=== PATIENT | female | born 1970 | race Hispanic/Latino ===

== ENCOUNTER 2016-09-13 11:00 | Emergency (ER) | payer SELFPAY ==
[~2016-09-13 11:00] MED LIST: NOMED
[2016-09-13 11:05] VITALS: BP 112/71; PULSE 70; RESP 16; O2SAT 98
[2016-09-13] MEDS ORDERED: Lidocaine 1%-Epi 1:100,000 20 mL Inj ONE (11:23)
--- NOTE | 2016-09-13 12:33 | ED.REPORT ---
HPI-Rash / Abscess Date of Service Sep 13, 2016 ED Provider: Antonio Raymundo PA-C Davina is an otherwise healthy 45-year-old female with chief complaint of left armpit pain. She first noticed a bump approximate 4 days ago which has been worsening over that time. She rates it 10 over 10 pain right now. Denies fever , chills, malaise, bowel pain, vomiting. Denies diabetes, HIV, immunosuppression. 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 Nursing Notes Stated Complaint: ARMPIT PAIN/POSS CYST Chief Complaint: Skin Rash/Abscess Nursing Notes Reviewed: Yes Allergies: Coded Allergies: No Known Allergies (Verified , 05/17/08) Miscellaneous Medications No Historical Medication (No Historical Medication) Ea General Time Seen by MD: 11:07 Chief Complaint Abscess Past Medical History Past Medical History Denies Past Surgical History Reports: Hysterectomy Reports: Tubal ligation Smoking History Never Smoker Ambulatory Status Independent Review of Systems Review of Systems Note: Negative unless stated otherwise in history of present illness Physical Exam General: Well appearing, well developed, well nourished, no acute distress. Left axilla: 2 cm area of fluctuance, redness, swelling, tenderness. There is central pointing that ruptures during examination, producing purulent discharge. No surrounding erythema, edema, induration or signs of cellulitis. Head: Atraumatic, normocephalic. Eyes: No scleral icterus or injection. No discharge. Vision grossly intact. ENT: Voice clear, hearing grossly intact. Respiratory: No respiratory distress, no increased work of breathing. Speaks in complete sentences. Skin: Warm and dry. Neurological: Grossly nonfocal. Psychological: alert and oriented. Speech appropriate, linear and logical. Behavior appropriate. Initial Vital Signs Vital Signs (First) Date Time Temp Pulse Resp B/P Pulse Ox O2 Delivery O2 Flow Rate FiO2 09/13/16 11:05 36.8 70 16 112/71 98 Room Air Initial VS: Reviewed, Vital signs normal Procedures Incision & Drainage Abscess Procedure Performed by: Allied health pract Consent / Setup / Site Prep: Informed consent provided, Consent from patient , Hand hygiene observed Skin Preparation Agent: Hibiclens - Chlorhexidine Local Anesthesia: Lidocaine w epi 1%, 4cc, 27g needle Incised Abscess with Scalpel: #11 Pus Drained: Large, Purulent discharge Irrigation: No Post-Procedure / Complications: Packing placed, Culture obtained, Gram stain ordered, Dressing applied, No complications, Condition improved, Tolerated procedure well, Patient stable Re-Eval/Medical Decision Med Decision/Clinical Course Otherwise healthy 45 female 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 She reports noticing a bump there several days ago which has worsened over the intervening time. Denies symptoms of systemic illness. Denies history of MRSA or comorbidities. Skull examination reveals a 2 cm abscess in the left axilla. Incised and drained producing a significant amount of purulent discharge. Culture and Gram stain sent. Placed packing. I do not see an indication for antibiotics at this time. Provided wound care instructions, primary care referral and follow-up instructions, emergency return precautions. Discharge & Departure Impression: Primary Impression: Abscess Disposition: Home Discharge Condition All VS Reviewed: Yes Condition: Stable Patient Instructions: Abscess Incision and Drainage (ED) Additional Instructions: Relation for left armpit pain in the emergency department. You had an abscess in your armpit, which is an infection under the skin. We cut it open and let the pus out. This should be enough to let it heal on its own. I do not believe that you should need antibiotics. If the packing is still in place in 2 days, feel free to remove it. If you are not comfortable doing this you are welcome to return to the emergency Department or see your primary care provider. The pain is best treated with 400 mg of ibuprofen (Advil, Motrin) every 6 hours , or 1000 mg of acetaminophen (Tylenol) every 6 hours. These drugs can be taken at the same time for more severe pain. Be vigilant for signs of worsening infection including fever, increasing redness , pain, swelling or the appearance of pus. Return to emergency Department if you notice any of these. I will give you a referral for a primary care provider. Please contact them if you have any concerns about your progress or if your condition is not significantly improved in one week. Referrals: [facility] EDSupervising Provider for APC: Jamaal Castaneda DO copies to: [facility] Antonio Raymundo PA-C Sep 13, 2016 12:33
== END 2016-09-13 12:39 | disposition home or self-care (01) ==
LOC: SED 11:00
DX: L02.412 Cutaneous abscess of left axilla (principal)